=== PATIENT | male | born 1955 | race Caucasian/White ===

== ENCOUNTER 2021-05-07 17:58 | Outpatient (CLI) | payer OTHER ==
[2021-05-08 18:19] LABS: SARS-CoV-2 PCR by NAA Not Detected (NotDetected)
== END 2021-05-07 17:59 | disposition home or self-care (01) ==
LOC: CSHLAB 17:58
PROVIDERS: ATTEND Internal Medicine Gastroenterology
DX: Z20.822 Contact with and (suspected) exposure to COVID-19 (principal); Z12.11 Encounter for screening for malignant neoplasm of colon
CPT/HCPCS: U0003; U0005

== ENCOUNTER 2021-05-10 06:41 | Day surgery (SDC) | payer OTHER ==
[2021-04-30 15:18] VITALS: BMI 31.6
[2021-05-10] MEDS ORDERED: Lidocaine 1% MPF 2 ML VIAL ONE (07:37)
[2021-05-10] MEDS ORDERED: Lidocaine 2% MPF 10 ML AMP (For Epidural Use) ONE (09:01)
[2021-05-10] MEDS ORDERED: PROPOFOL 40 ML ONE (09:01)
== END 2021-05-10 10:15 | disposition home or self-care (01) ==
LOC: CSHSDC 06:41
PROVIDERS: ATTEND Internal Medicine Gastroenterology
PROC: 0DJD8ZZ Inspection of Lower Intestinal Tract, Via Natural or Artificial Opening Endoscopic (ICD-10-PCS; principal; 2021-05-10)
DX: Z12.11 Encounter for screening for malignant neoplasm of colon (principal)
CPT/HCPCS: J2704

== ENCOUNTER 2022-12-18 09:04 | Emergency (ER) | payer MEDICARE, BC, OTHER ==
[2022-12-18] MEDS ORDERED: Triple Antibiotic Oint 1 GM Packet ONE (10:40)
== END 2022-12-18 10:52 | disposition home or self-care (01) ==
LOC: CSHERS 09:04
DX: S61.211A Laceration without foreign body of left index finger without damage to nail, initial encounter (principal); W26.8XXA Contact with other sharp object(s), not elsewhere classified, initial encounter
CPT/HCPCS: 12001